=== PATIENT | male | born 1980 | race Caucasian/White ===

== ENCOUNTER 2017-04-20 08:02 | Emergency (ER) | payer OTHER ==
[2017-04-20] MEDS ORDERED: Tetracaine 0.5% OPTH.SOL 4 ML* 1 DROP BTL BOTH EYES ONE (08:23)
[2017-04-20] MEDS ORDERED: BSS OPTH.SOL* BTL ONE (08:27)
--- NOTE | 2017-04-20 08:27 | UC ---
Eye Complaint HPI - HPI Summary HPI Summary: Pt c/o sudden onset of bilateral eye redness, discharge and upper eyelid swelling that began last night. Pt placed Viomoxx eye drops previously prescribed last night. No improvement. - History of Current Complaint Chief Complaint: UCEye Stated Complaint: BILATERAL EYE COMPLAINT Time Seen by Provider: 04/20/17 08:10 Hx Obtained From: Patient Onset/Duration: Sudden Onset, Still Present Timing: Constant Severity Initially: Mild Severity Currently: Mild Character: Dull Aggravating Factor(s): Light Alleviating Factor(s): Nothing Associated Signs And Symptoms: Positive: Photophobia, Drainage (Clear) - Allergies/Home Medications Allergies/Adverse Reactions: Allergies Allergy/AdvReac Type Severity Reaction Status Date / Time No Known Allergies Allergy Verified 04/20/17 08:09 Home Medications: Home Medications Enalapril TAB* [Vasotec TAB*] 5 mg QAM 04/20/17 [History Confirmed 04/20/17] PMH/Surg Hx/FS Hx/Imm Hx - Additional Past Medical History Additional PMH: C/O of sudden onset of bilateral eye redness, eyelid swelling, photophobia and "sand paper" feeling that began last night and is worse this morning. Previously Healthy: Yes Endocrine History: Diabetes, Dyslipidemia Cardiovascular History: Hypertension - Surgical History Surgical History: None - Family History Known Family History: Positive: Cardiac Disease - Social History Occupation: Employed Full-time Lives: With Family Alcohol Use: Occasionally Substance Use Type: None Smoking Status (MU): Never Smoked Tobacco Have You Smoked in the Last Year: No - Immunization History Most Recent Influenza Vaccination: 2017 Vaccination Up to Date: Yes Review of Systems Constitutional: Negative Skin: Negative Eyes: Drainage, Eye Redness, Photophobia ENT: Negative Respiratory: Negative Cardiovascular: Negative Gastrointestinal: Negative Genitourinary: Negative Motor: Negative Neurovascular: Negative Musculoskeletal: Negative Neurological: Negative Psychological: Negative Is Patient Immunocompromised?: No All Other Systems Reviewed And Are Negative: Yes Physical Exam Triage Information Reviewed: Yes Appearance: Well-Appearing Vital Signs: Initial Vital Signs Temp 98 F 04/20/17 08:10 Pulse 82 04/20/17 08:10 Resp 16 04/20/17 08:10 BP 144/111 04/20/17 08:10 Pulse Ox 99 04/20/17 08:10 Vital Signs Reviewed: Yes Eyes: Positive: Conjunctiva Inflamed, Discharge - clear, Other: - eye lid swelling ENT Exam: Normal Neck exam: Normal Respiratory Exam: Normal Cardiovascular Exam: Normal Musculoskeletal Exam: Normal Neurological Exam: Normal Psychological Exam: Normal Skin Exam: Normal Eye Complaint Course/Dx - Course Course Of Treatment: Repeat BP 157/97. I discussed with the pt the need to follow up with his PCP regarding his elevated BP. Pt states he took his HTN medication just prior to arrival to clinic. Pt verbalized understanding and agreed to plan of care. - Differential Dx/Diagnosis Differential Diagnosis/HQI/PQRI: Conjunctivitis, Corneal Abrasion, Foreign Body Provider Diagnoses: conjunctivitis. elevated BP Discharge - Discharge Plan Condition: Stable Disposition: HOME Prescriptions: Ofloxacin 0.3%(Ophth)(Nf) [Ocuflox OPTH 0.3%(NF)] 2 drop BOTH EYES Q8H #1 btl Patient Education Materials: Hypertension (ED), Conjunctivitis (ED) Referrals: Non Staff,Doctor [Medical Doctor] - If Needed [place] Lizama MD [Medical Doctor] - If Needed Additional Instructions: Please follow up with your PCP regarding your elevated BP as soon as possible. Additionally, it is recommended that you follow up with your eye care provider as needed
[2017-04-20] MEDS ORDERED: BSS OPTH.SOL* BTL OPHTHALMIC ONE (08:28)
[2017-04-20 08:37] VITALS: BP 157/97
== END 2017-04-20 08:45 | disposition home or self-care (01) ==
LOC: UCCORT 08:02
DX: H10.33 Unspecified acute conjunctivitis, bilateral (principal); I10 Essential (primary) hypertension; E11.9 Type 2 diabetes mellitus without complications; E78.5 Hyperlipidemia, unspecified
CPT/HCPCS: 99202; A9270-GY; G0463

== ENCOUNTER 2018-10-07 10:50 | Emergency (ER) | payer OTHER ==
[2018-10-07 11:09] VITALS: BP 149/87
--- NOTE | 2018-10-07 11:28 | UC ---
Skin Complaint HPI - HPI Summary HPI Summary: 37 year old female with PMH + for DM presents with redness, pain on RIght side of neck x 24 hours. no fever, chills, no prior episodes of infection, cellulitis. + PMH for DM. Patient concerned as both children + for MRSA. - History of Current Complaint Chief Complaint: UCSkin Time Seen by Provider: 10/07/18 11:21 Stated Complaint: SKIN CONCERN Hx Obtained From: Patient Onset/Duration: Sudden Onset, Lasting Days - 24 hours Skin Exposure Onset/Duration: Hours Ago Timing: Constant Onset Severity: Mild Current Severity: None Pain Intensity: 0 Pain Scale Used: 0-10 Numeric Location: Discrete - right lower neck Character: Swelling, Redness, Raised, Painful Aggravating Factor(s): Touch Alleviating Factor(s): Nothing Associated Signs & Symptoms: Negative: Nausea, Fever, Chills - Allergy/Home Medications Allergies/Adverse Reactions: Allergies Allergy/AdvReac Type Severity Reaction Status Date / Time No Known Allergies Allergy Verified 10/07/18 11:04 Home Medications: Home Medications Atorvastatin* [Lipitor 10 MG*] 10 mg PO DAILY 10/07/18 [History Confirmed ] PMH/Surg Hx/FS Hx/Imm Hx Previously Healthy: No - DM - Surgical History Surgical History: None - Family History Known Family History: Positive: Cardiac Disease - Social History Alcohol Use: Occasionally Substance Use Type: None Smoking Status (MU): Never Smoked Tobacco Have You Smoked in the Last Year: No - Immunization History Most Recent Influenza Vaccination: 2017 Vaccination Up to Date: Yes Review of Systems All Other Systems Reviewed And Are Negative: Yes Constitutional: Positive: Negative Skin: Positive: Rash, Other - TTP Is Patient Immunocompromised?: No Physical Exam Triage Information Reviewed: Yes Appearance: Well-Appearing, No Pain Distress, Well-Nourished Vital Signs: Initial Vital Signs Temp 98.9 F 10/07/18 11:03 Pulse 80 10/07/18 11:03 Resp 18 10/07/18 11:03 BP 149/87 10/07/18 11:03 Pulse Ox 99 10/07/18 11:03 Vital Signs Reviewed: Yes Eyes: Positive: Conjunctiva Clear Neck: Positive: Supple, Nontender, No Lymphadenopathy Musculoskeletal Exam: Normal Musculoskeletal: Positive: ROM Intact, No Edema - full ROM cerivcal spine Neurological Exam: Normal Psychological Exam: Normal Skin: Positive: Other - raised, redness around right lower neck, no drainage noted, TTP, ~ 1cm area with palpable firm raised center, no fluctuantions. Course/Dx - Course Course Of Treatment: mild cellulitis with h/o recent MRSA infections in home, patient concerned about spread due to childrens infections. ABX given, continue to monitor, no I& D needed - Differential Diagnoses - Skin Complaint Differential Diagnoses: Cellulitis - Diagnoses Provider Diagnosis: Cellulitis, neck Discharge - Sign-Out/Discharge Documenting (check all that apply): Patient Departure All imaging exams completed and their final reports reviewed: No Studies - Discharge Plan Condition: Good Disposition: HOME Prescriptions: Sulfamethox/Trimethoprim DS* [Bactrim DS 800/160 TAB*] 1 tab PO BID #14 tab Patient Education Materials: Cellulitis (ED) Forms: *Work Release Referrals: William Crespo MD [Primary Care Provider] - Additional Instructions: - Bactrim twice daily x 7 days for neck cellulitis - Warm compresses several times throughout the day - DO not use Hibiclens on area - FOllow up with primary within 3-5 days if no improvement - REturn with worsening/ increased symptoms. - Billing Disposition and Condition Condition: GOOD Disposition: Home - Attestation Statements Provider Attestation: Per institutional requirements, I have reviewed the chart, however, I was not consulted specifically or made aware of this patient by the midlevel provider. I did not personally evaluate, interact with , or disposition this patient.
== END 2018-10-07 11:46 | disposition home or self-care (01) ==
LOC: UCCORT 10:50
DX: L03.221 Cellulitis of neck (principal); E11.9 Type 2 diabetes mellitus without complications
CPT/HCPCS: 99212; G0463